=== PATIENT | female | born 1965 | race Caucasian/White ===

== ENCOUNTER 2021-07-17 08:35 | Emergency (ER) | payer BC, OTHER ==
[~2021-07-17] VITALS: Ht 160 cm; Wt 91.4 kg
--- NOTE | 2021-07-17 08:41 | ED Lower Extremity ---
General Chief Complaint: Lower Extremity Stated Complaint: LANE LEG PAIN History of Present Illness Date Seen by Provider: Jul 17, 2021 Time Seen by Provider: 08:40 Initial Comments 55-year-old female presents with some bilateral leg what she describes as paresthesias of her upper thighs, she also complains of some on and off left ankle pain has been going on for a year. Then 2 days ago she had some pain in her left posterior calf but is now basically resolved in the calf. 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 She is supposed to take a daily aspirin but does not. She has no shortness of breath, leg swelling, discoloration or other systemic complaints Allergies and Home Medications Allergies Coded Allergies: No Known Drug Allergies (Unverified , 07/17/21) Patient Home Medication List Home Medication List Reviewed: Yes Review of Systems Constitutional: No chills, No fever Respiratory: No cough, No short of breath Cardiovascular: No chest pain, No palpitations Gastrointestinal: no symptoms reported Musculoskeletal: see HPI Skin: no symptoms reported Psychiatric/Neurological: See HPI Physical Exam Vital Signs Vital Signs - First Documented 07/17/21 08:41 Temp 35.8 Pulse 105 Resp 16 B/P (MAP) 145/88 (107) Pulse Ox 98 O2 Delivery Room Air Capillary Refill : Height, Weight, BMI Height: '" Weight: lbs. oz. kg; BMI Method: General Appearance: no apparent distress, moderate distress Cardiovascular: normal peripheral pulses, regular rate, rhythm Respiratory: lungs clear, normal breath sounds Hips: bilateral hip non-tender Legs: left leg other (mild tenderness lateral left lower leg and posterior mild calf pain ) Knees: bilateral knee non-tender Neurologic/Psychiatric: alert, normal mood/affect, oriented x 3 Skin: normal color, warm/dry Progress/Results/Core Measures Results/Orders Lab Results Laboratory Tests Test 07/17/21 08:53 Range/Units D-Dimer 0.23 0.00-0.49 UG/ML My Orders Orders - CLIFTON CHRISTENSEN DO Fibrin Degradation [employer] (07/17/21 08:45) Vital Signs/I&O 07/17/21 07/17/21 08:41 09:32 Temp 35.8 35.8 Pulse 105 105 Resp 16 16 B/P (MAP) 145/88 (107) 145/88 Pulse Ox 98 98 O2 Delivery Room Air Room Air Progress Progress Note : Progress Note Patient with a negative D-dimer and a fairly benign physical exam. Patient very unlikely with both physical findings a negative D-dimer to have a blood clot. At this time ultrasound is not warranted. Discussed with her the need to follow-up with her primary care provider for further evaluation for her paresthesia and her leg pain that can have multiple different causes that would need further outpatient evaluation. Patient voices understanding. She will be discharged home in stable condition. Departure Impression Primary Impression: Lower extremity pain, bilateral Disposition: 01 HOME, SELF-CARE Condition: Stable Departure-Patient Inst. Referrals: CARRILLO BRIGHT APRN (PCP) Primary Care Physician [facility] (Family) Primary Care Physician Patient Instructions: Paresthesia (DC), Lower Extremity Exercises Seated Add. Discharge Instructions: Follow-up with your primary care provider for further evaluation and outpatient testing as needed All discharge instructions reviewed with patient and/or family. Voiced understanding. CLIFTON CHRISTENSEN DO Jul 17, 2021 08:40
--- OUTSIDE RECORDS SUMMARY | 2021-07-17 08:41 | XMS REPORT | Clinical Summary ---
Author Author [facility] Organization [facility] Address Unknown Phone Unavailable Care Team Providers Care Executive Assistant To General Counsel Name Role Phone Galindo Goodman MD Unavailable Unavailable Emma Aguirre MD PCP Unavailable Pascual Edwards MD Unavailable Kelly De León DO Unavailable Unavailable Tomás Rubio APRN Unavailable Unavailable Shahzad Valle MD Unavailable Unavailable Source Comments Some departments are not documenting in the electronic medical record. If you d o not see the information that you expected, contact Release of Information in [facility] Information Management department at [phone] for further assistan ce in locating additional records.[facility] Allergies Comments Active Allergy Reactions Severity Noted Date Stomach upset Sulfamethoxazole-Trimetho SEE COMMENTS 07/07/2012 prim Leg cramps Xckqsci-Sgr-Jmf Reductase SEE COMMENTS 07/07/2012 Inhibitors Medications End Date Status Medication Sig Dispensed Refills Start Date Active pantoprazole DR Take 20 mg by 0 (PROTONIX) 20 mg tablet mouth daily. Active sucralfate (CARAFATE) 1 Take 1 g by 0 gram tablet mouth every 6 hours. Active Fenofibric Acid Take 135 mg 0 (TRILIPIX) 135 mg CpDR by mouth daily. Active aspirin EC 81 mg tablet Take 81 mg by 0 mouth daily. Active Problems Problem Noted Date Claudication in peripheral vascular disease 05/13/20 13 Overview: Formatting of this note might be differ ent from the original. A. 07/15/12 - AARO - occluded right ant erior tibial artery at proximal third of calf; occluded right posterior tibial artery in distal third of calf. B. 07/17/11 - Aortoiliac Duplex - normal doppler; Abdominal aorta normal caliber. Pain management 05/13/2013 Overview: Formatting of this note might be differ ent from the original. A. 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 Surgical History Surgery Date Site/Laterality Comments FOOT SURGERY 07 Right Medical History Medical History Date Comments Hyperlipemia Family History Medical History Relation Name Comments Hypertension Mother Hyperlipidemia Relation Name Status Comments Father Alive Mother Alive Social History Date Tobacco Use Types Packs/Day Years Used Passive Smoke Exposure - Cigarettes Never Smoker Smokeless Tobacco: Current User Comments Alcohol Use Standard Drinks/Week Yes 0 (1 standard drink = 0.6 o z pure alcohol) Sex Assigned at Date Recorded Not on file Last Filed Vital Signs Reading Time Taken Comments Vital Sign 151/84 08/19/2014 9:34 AM [employer] Blood Pressure 86 08/19/2014 9:34 AM [employer] Pulse 36.4 C (97.5 F) 08/19/2014 9:34 AM [employer] Temperature 16 08/19/2014 9:34 AM [employer] Respiratory Rate 96% 07/17/2012 3:20 PM [employer] Oxygen Saturation - - Inhaled Oxygen Concentration 86.7 kg (191 lb 3.2 oz) 08/19/2014 9:34 AM [employer] Weight 157.5 cm (5' 2") 08/19/2014 9:34 AM [employer] Height 34.97 08/19/2014 9:34 AM [employer] Body Mass Index Plan of Treatment Health Maintenance Due Date Last Done Comments HIV SCREENING 1978 DTAP/TDAP VACCINES (1 - 1981 Tdap) HEPATITIS C SCREENING 1981 PHYSICAL (COMPREHENSIVE) 1981 EXAM CERVICAL CANCER SCREENING 1984 BREAST CANCER SCREENING 2003 COLORECTAL CANCER 2013 SCREENING SHINGLES RECOMBINANT 2013 VACCINE (1 of 2) INFLUENZA VACCINE 04/09/2021 Results Not on filefrom Last 3 Months Insurance Type Payer Benefit Subscriber ID Effective Phone Address Plan / Dates Group PPO BC[facility] [id number] PREF CARE resent BLUE [address] (Home) [place] [phone] Advance Directives 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 necessary based on Dx
[2021-07-17 09:32] VITALS: BP 145/88
== END 2021-07-17 09:29 | disposition home or self-care (01) ==
LOC: EDUNIT# 08:35 → ER FS 08:38
DX: M79.661 Pain in right lower leg (principal); M79.662 Pain in left lower leg
CPT/HCPCS: 36415; 85379